=== PATIENT | female | born 1995 | race Caucasian/White ===

== ENCOUNTER 2017-07-19 18:25 | Emergency (ER) | payer SELFPAY | END 2017-07-19 21:28 | disposition home or self-care (01) | LOC: ERS 18:25 | DX: K02.9 Dental caries, unspecified (principal); F41.9 Anxiety disorder, unspecified; F32.9 Major depressive disorder, single episode, unspecified; F17.210 Nicotine dependence, cigarettes, uncomplicated | CPT/HCPCS: 99406 ==